=== PATIENT | female | born 1995 | race African-American/Black ===

== ENCOUNTER 2017-02-06 03:08 | Emergency (ER) | payer OTHER ==
[~2017-02-06] VITALS: Ht 167.6 cm; Wt 65.0 kg
[2017-02-06] MEDS ORDERED: IBUP-232 PO (03:19)
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
[2017-02-06 03:26] VITALS: BP 107/62; PULSE 66; RESP 16; TEMP 98.4; O2SAT 100
[2017-02-06] MEDS ORDERED: IBUPROFEN 600 MG TAB PO ONE (03:30)
== END 2017-02-06 04:05 | disposition home or self-care (01) ==
LOC: NEPB 03:08
DX: S30.0XXA Contusion of lower back and pelvis, initial encounter (principal); Y04.2XXA Assault by strike against or bumped into by another person, initial encounter; Y93.F9 Activity, other caregiving; Y92.238 Other place in hospital as the place of occurrence of the external cause; Y99.0 Civilian activity done for income or pay
CPT/HCPCS: 99283

== ENCOUNTER 2017-03-12 22:40 | Emergency (ER) | payer OTHER ==
[~2017-03-12] VITALS: Ht 167.6 cm; Wt 77.0 kg
[~2017-03-12 22:40] MED LIST: IBUP-232 PO
[2017-03-12 22:42] VITALS: BP 142/84; PULSE 107; RESP 18; TEMP 98.5; O2SAT 100
[2017-03-12] MEDS ORDERED: SODIUM CHLOR 0.9% 1000 ML INJ 1,000 ML IV ONE (23:02)
[2017-03-12] MEDS ORDERED: SODIUM CHLORIDE 0.9% FLUSH 10 ML FLUSH IVF PRN (23:15)
[2017-03-12] MEDS ORDERED: PROCHLORPERAZINE INJ 10 MG/2 ML VIAL IVP ONE (23:15)
[2017-03-12] MEDS ORDERED: ACETAMINOPHEN 325 MG TAB PO ONE (23:15)
[2017-03-12] MEDS ORDERED: diphenhydrAMINE HCL 50 MG/ML VIAL IVP ONE (23:15)
--- NOTE | 2017-03-13 00:40 | PD ---
HPI Chief Complaint: Allergic/Adverse Reaction Time Seen by Provider: 22:55 Travel History International Travel<30 days: No Contact w/Intl Traveler<30days: No Traveled to known affect area: No History of Present Illness HPI The patient's 21 years old. She arrives with a headache left frontal and location duration about 4-5 hours. Onset gradual. Photophobia present. Nausea present. She's had no vomiting. She reports a history of migraines but today's headache is worse than priors. Severity at its worse was 10 over 10. In the ER she states that over 10. She tried to eat food which did not help. No fever. She denies neck stiffness. She does note a UTI diagnosed couple days ago with initiation of Bactrim today. PFSH Past Medical History Medical History: Denies Significant Hx Influenza Vaccination: No ?: Not LMP: 02/28/17 : 0 Past Surgical History Surgical History: No Previous Surgery Social History Alcohol Use: Yes Tobacco Use: No Substance Use: No Allergies-Medications (Allergen,Severity, Reaction): Coded Allergies: No Known Allergies (Unverified , 02/06/17) Reported Meds & Prescriptions Reported Meds & Active Scripts Active No Active Prescriptions or Reported Medications Review of Systems Except as stated in HPI: all other systems reviewed are Neg Physical Exam Narrative GENERAL: 21-year-old female well-nourished well-developed mild distress SKIN: Focused skin assessment warm/dry. HEAD: Atraumatic. Normocephalic. EYES: Pupils equal and round. No scleral icterus. No injection or drainage. Extraocular muscles intact. Normal range of motion.Tympanic membrane pink dry and intact bilaterally. ENT: No nasal bleeding or discharge. Mucous membranes pink and moist. NECK: Trachea midline. No JVD. Supple. Range of motion preserved. CARDIOVASCULAR: Regular rate and rhythm. No murmur appreciated. RESPIRATORY: No accessory muscle use. Clear to auscultation. Breath sounds equal bilaterally. GASTROINTESTINAL: Abdomen soft, non-tender, nondistended. Hepatic and splenic margins not palpable. MUSCULOSKELETAL: No obvious deformities. No clubbing. No cyanosis. No edema. NEUROLOGICAL: Awake and alert. No obvious cranial nerve deficits. Motor grossly within normal limits. Normal speech. PSYCHIATRIC: Appropriate mood and affect; insight and judgment normal. Data Data Last Documented VS Vital Signs Date Time Temp Pulse Resp B/P Pulse Ox O2 Delivery O2 Flow Rate FiO2 03/12/17 22:42 98.5 107 18 142/84 100 Room Air Vital signs reviewed Orders Ecg Monitoring (03/12/17 23:02) Iv Access Insert/Monitor (03/12/17 23:02) Oximetry (03/12/17 23:02) Sodium Chloride 0.9% Flush (Ns Flush) (03/12/17 23:15) Acetaminophen (Tylenol) (03/12/17 23:15) Prochlorperazine Inj (Compazine Inj) (03/12/17 23:15) Diphenhydramine Inj (Benadryl Inj) (03/12/17 23:15) Sodium Chlor 0.9% 1000 Ml Inj (Ns 1000 M (03/12/17 23:02) MDM Medical Decision Making Medical Screen Exam Complete: Yes Emergency Medical Condition: Yes Medical Record Reviewed: Yes Differential Diagnosis Meningitis, subarachnoid hemorrhage, sinusitis, thrombotic disease, aneurysm, migraine Narrative Course The patient received Compazine Benadryl Tylenol and IV fluids. She was reassessed at 12:43 AM and at that time had complete resolution of symptoms. Heart rate was about 84. Return precautions discussed. She is ready for discharge. Meningitis aneurysm and other 3 medical/surgical emergency considered though overall likelihood very very low. Diagnosis Primary Impression: Cephalgia Qualified Code: R51 - Acute nonintractable headache, unspecified headache type Referrals: Primary Care Physician 2 days Additional Instructions: You have a choice when it comes to health care, and we are glad that you chose [facility]. Hopefully, we have met your expectations on today's visit. You are welcome to return to [facility] at any time, as we are committed to meeting the health care needs of our community. Med/Other Pt SpecificInfo: No Change to Meds Scripts No Active Prescriptions or Reported Meds Disposition: DISCHARGE HOME Condition: Stefan Larios MD Mar 13, 2017 00:40
[2017-03-13 01:10] VITALS: BP 110/55; PULSE 62; RESP 18; TEMP 98.1; O2SAT 100
== END 2017-03-13 01:18 | disposition home or self-care (01) ==
LOC: NEPC 22:40
DX: R51 Headache (principal); H53.149 Visual discomfort, unspecified; R11.0 Nausea
CPT/HCPCS: 96374; 96375; 99283; J0780; J1200; J7030

== ENCOUNTER 2018-04-27 16:57 | Emergency (ER) | payer OTHER ==
[~2018-04-27] VITALS: Ht 167.6 cm; Wt 79.5 kg
[2018-04-27 17:01] VITALS: BP 142/63; PULSE 67; RESP 16; TEMP 98.5; O2SAT 98
--- NOTE | 2018-04-27 17:19 | PD ---
HPI Chief Complaint: Back/ Neck Pain or Injury Time Seen by Provider: 17:05 Travel History International Travel<30 days: No Contact w/Intl Traveler<30days: No Traveled to known affect area: No History of Present Illness HPI 22-year-old otherwise healthy female presents to the emergency room for evaluation of acute on chronic low back pain. Symptoms have been present for a long time and she was seen by her primary care physician in [place] but never had a workup for it. She has never had any imaging. States over the past 3 days, pain has worsened without any trauma or injury. It is localized to bilateral lower lumbar region without radiation. Worsened with any range of motion, lifting her leg, or bending her neck downward. She took 2 Excedrin last night with moderate relief in symptoms. Patient denies flank pain, urinary symptoms, fever, chills, night sweats, weight loss, history of cancer, IV drug use, saddle anesthesia, loss of bowel or bladder control, or lower extremity paresthesias. Denies possibility of . Her last menstrual cycle was 1 week ago. [facility] Past Medical History Medical History: Denies Significant Hx ?: Not LMP: : 0 Past Surgical History Surgical History: No Previous Surgery Social History Alcohol Use: Yes Tobacco Use: No Substance Use: No Allergies-Medications (Allergen,Severity, Reaction): Coded Allergies: No Known Allergies (Unverified Adverse Reaction, Unknown, 04/27/18) Reported Meds & Prescriptions Reported Meds & Active Scripts Active No Active Prescriptions or Reported Medications Review of Systems Except as stated in HPI: all other systems reviewed are Neg Physical Exam Narrative GENERAL: Well-nourished, well-developed female no acute distress. Afebrile. Ambulatory. Moving easily on the bed. SKIN: Focused skin assessment warm/dry. HEAD: Normocephalic. EYES: No scleral icterus. No injection or drainage. NECK: Supple, trachea midline. No JVD or lymphadenopathy. CARDIOVASCULAR: Regular rate and rhythm without murmurs, gallops, or rubs. RESPIRATORY: Breath sounds equal bilaterally. No accessory muscle use. BACK: No CVA tenderness. No rash. No point tenderness on palpation of the spine. Positive straight leg raise bilaterally. 2+ patellar and Achilles reflexes are equal bilaterally. Data Data Last Documented VS Vital Signs Date Time Temp Pulse Resp B/P (MAP) Pulse Ox O2 Delivery O2 Flow Rate FiO2 04/27/18 17:01 98.5 67 16 142/63 (89) 98 Orders Orders Spine, Lumbar - Ltd (Ap & Lat) (04/27/18 ) Ed Discharge Order (04/27/18 17:52) [facility] Medical Decision Making Medical Screen Exam Complete: Yes Emergency Medical Condition: Yes Medical Record Reviewed: Yes Differential Diagnosis Fracture, degenerative disc disease, strain, sprain, slipped disc Narrative Course 22-year-old otherwise healthy female presents to the emergency room for evaluation of acute on chronic bilateral low back pain. Symptoms have been present for 3 days. No trauma or injury. No red flag symptoms. Physical exam is reassuring. Patient is ambulatory without antalgic gait. She moves easily on the bed. There is no midline tenderness. No focal neurological deficits. No CVA tenderness. Patient was offered Toradol but declined. X-ray of the lumbar spine is negative. Patient was reassured and discharged with prescription for ibuprofen. Told to follow-up with a primary care physician for outpatient imaging if symptoms persist or return to the emergency room for worsening symptoms. She understands and agrees to plan. Diagnosis Primary Impression: Low back strain Qualified Codes: S39.012A - Strain of muscle, fascia and tendon of lower back , initial encounter Referrals: [facility] Primary Care Physician Additional Instructions: Rest and drink plenty of fluids. Take ibuprofen with food as directed, as needed for pain. Apply ice to the affected area for 20 minutes at a time, as needed for pain and swelling. Follow-up with a primary care physician. Return to the emergency room for worsening symptoms. Med/Other Pt SpecificInfo: Prescription(s) given Scripts Ibuprofen (Ibuprofen) 600 Mg Tab 600 MG PO Q8HR Y for PAIN, #21 TAB 0 Refills Prov: Mitch Echavarria MD 04/27/18 Disposition: 01 DISCHARGE HOME Condition: Stable Rosalie Myles Apr 27, 2018 17:19
--- NOTE | 2018-04-27 17:50 | RADRPT ---
EXAM DATE: 04/27/2018 5:45 PM EDT AGE/SEX: 22 years / Female INDICATIONS: No known injury. Pain for two months in lower back. CLINICAL DATA: This is the patient's initial encounter. Patient reports that signs and symptoms have been present for 2 months and indicates a pain score of 7/10. MEDICAL/SURGICAL HISTORY: None. None. COMPARISON: No prior exams available for comparison. FINDINGS: No appreciable compression deformities, spondylolisthesis, or spondylolysis is seen. The d isc spaces are well-maintained for technique. CONCLUSION: Unremarkable study. Electronically signed by: Jaja Irene MD 04/27/2018 5:48 PM EDT
[2018-04-27] MEDS ORDERED: IBUP-232 PO (17:53)
== END 2018-04-27 18:02 | disposition home or self-care (01) ==
LOC: PHEFT 16:57
DX: S39.012A Strain of muscle, fascia and tendon of lower back, initial encounter (principal); X58.XXXA Exposure to other specified factors, initial encounter; G89.29 Other chronic pain
CPT/HCPCS: 72100; 99283